=== PATIENT | female | born 1970 | race Caucasian/White ===

== ENCOUNTER 2017-07-14 03:29 | Outpatient (CLI) | payer OTHER | END 2017-07-14 03:30 | disposition home or self-care (01) | LOC: BICRAD 03:29 | PROVIDERS: ATTEND Nurse Practitioner Family | DX: M54.2 Cervicalgia (principal) | CPT/HCPCS: 72052 ==

== ENCOUNTER 2017-07-15 12:41 | Outpatient (CLI) | payer OTHER ==
--- NOTE | 2017-07-15 15:52 | CT ---
CT OF THE BRAIN WITHOUT CONTRAST 07/15/17 COMPARISON: None. HISTORY: Fell and hit right side of head four days ago with headache. TECHNIQUE: Multiple contiguous axial images were obtained in a CT of the brain without contrast. FINDINGS: The brain has normal morphology and attenuation without focal lesions or confluent areas of infarctio n. There is no evidence of hydrocephalus, intracranial hemorrhage, or extra-axial fluid collection. The calvarium and overlying soft tissues are unremarkable. The visualized paranasal sinuses and masto id air cells are well aerated. IMPRESSION: No evidence of acute intracranial abnormality. POS: [facility]
== END 2017-07-15 12:42 | disposition home or self-care (01) ==
LOC: SCSCT 12:41
PROVIDERS: ATTEND Specialist
DX: R51 Headache (principal); W19.XXXA Unspecified fall, initial encounter
CPT/HCPCS: 70450

== ENCOUNTER 2017-09-10 11:00 | Outpatient (CLI) | payer OTHER ==
--- NOTE | 2017-09-10 12:30 | RAD ---
CERVICAL SPINE SERIES 3 VIEWS WITH FLEXION AND EXTENSION: HISTORY: Left-sided neck pain since July. FINDINGS: Vertebral bodies are normal in height. Disk spaces appear well preserved. No abnormal motion is noemí reciated in flexion or extension. IMPRESSION: Negative cervical spine series. POS: [facility]
== END 2017-09-10 11:01 | disposition home or self-care (01) ==
LOC: TBSIIMAG 11:00
PROVIDERS: ATTEND Neurological Surgery
DX: M54.2 Cervicalgia (principal)
CPT/HCPCS: 72040

== ENCOUNTER 2017-10-29 10:52 | Outpatient (CLI) | payer OTHER | END 2017-10-29 10:53 | disposition home or self-care (01) | LOC: BICRAD 10:52 | PROVIDERS: ATTEND Internal Medicine Rheumatology | DX: M17.0 Bilateral primary osteoarthritis of knee (principal); M54.89 Other dorsalgia; M47.896 Other spondylosis, lumbar region; M48.061 Spinal stenosis, lumbar region without neurogenic claudication | CPT/HCPCS: 72100 ==

== ENCOUNTER 2020-07-23 07:16 | Observation (INO) | payer OTHER ==
[2020-07-23] MEDS ORDERED: Aspirin 325 MG TAB ONE (07:38)
--- NOTE | 2020-07-23 07:48 | RAD ---
Chest one view HISTORY: Chest pain. FINDINGS: Cardiac silhouette and pulmonary vasculature are unremarkable. Mediastinum is midline. No l obar consolidation or evidence of pneumothorax. IMPRESSION : No abnormalities are demonstrated.
[2020-07-23 08:00] LABS: #Basophils 0.1 thou/uL (0.0-0.2); #Eosinphils 0.1 thou/uL (0.0-0.7); #Lymphocytes 2.2 thou/uL (1.20-3.40); #Monocytes 0.6 thou/uL (0.11-0.59); #Neutrophils 6.6 thou/uL (1.40-6.50); %Basophils 0.7 % (0.0-1.0); %Eosinophils 1.2 % (0.0-10.0); %Lymphocytes 23.1 % (21.0-51.0); %Monocytes 6.1 % (0.0-10.0); %Neutrophils 68.9 % (42.0-75.0); Hemoglobin 13.5 g/dL (12.0-16.0); Mean Corpuscular HGB CONC 33.9 g/dL (32.0-36.0); Mean Corpuscular Hemoglobin 31.5 pg (27.0-31.0); Mean Corpuscular Volume 92.9 fL (78.0-98.0); Mean Platelet Volume 7.5 fL (7.4-10.4); Platelet Count 239 thou/uL (130-400); RBC Distribution Width 11.8 % (11.5-14.5); White Blood Cell (WBC) Count 9.6 thou/uL (4.8-10.8)
[2020-07-23 08:07] LABS: BHCG - Serum Negative (NEGATIVE); Pregs Control Background? CLEAR/WHITE (CLR/WHITE); Pregs Control Bar Appear? YES (CONTROL BAR)
[2020-07-23 08:22] LABS: ALT (SGPT) 12 U/L (8-55); AST (SGOT) 13 U/L (5-34); Albumin 3.8 g/dL (3.5-5.0); Alkaline Phosphatase 106 U/L (40-110); Anion Gap 13 mmol/L (10-20); BUN (Urea Nitrogen) 12 mg/dL (7.0-18.7); Bilirubin, Total 0.3 mg/dL (0.2-1.2); Calc. Creatinine Clearance 0 mL/min (70-130); Calcium 8.6 mg/dL (7.8-10.44); Carbon Dioxide 30 mmol/L (22-29); Chloride 102 mmol/L (98-107); Globulin 2.8 g/dL (2.4-3.5); Glucose 100 mg/dL (70-105); Potassium 3.7 mmol/L (3.5-5.1); Protein, Total 6.6 g/dL (6.0-8.3); Sodium 141 mmol/L (136-145)
[2020-07-23] MEDS ORDERED: Iopamidol 370 76% 100 ML VIAL ONE (08:53)
[2020-07-23 10:21] LABS: SARS-CoV-2 NAA Rapid Test Not Detected (NotDetected)
[2020-07-23 12:09] LABS: Troponin I 0.011 ng/mL (< 0.028)
[2020-07-23] MEDS ORDERED: Communication Order-Pharmacy FS SCH (13:15)
[2020-07-23 13:30] VITALS: BMI 45.2
[2020-07-23] MEDS ORDERED: Midazolam HCl 2 mg/2 ml Vial ONE (13:54)
[2020-07-23] MEDS ORDERED: Fentanyl 100 MCG/2 ML VIAL ONE (13:54)
--- NOTE | 2020-07-23 14:06 | CON ---
DATE OF CONSULTATION: HISTORY OF PRESENT ILLNESS: The patient is a 49-year-old woman who presents with recurrent chest discomfort. The patient was seen initially for evaluation of left-sided chest discomfort. She reports that this chest discomfort occurs with and without exertion. The patient underwent a Cardiolite stress test, which was indeterminate. She subsequently underwent a PET scan, which revealed possible ischemia in the anteroapical wall. The patient this morning developed recurrent left-sided chest discomfort and presented to the emergency room for further evaluation. The patient denies having any present chest discomfort. PAST MEDICAL HISTORY: 1. Hypertension. 2. GE reflux. 3. Anxiety disorder. 4. Carpal tunnel syndrome. PAST SURGICAL HISTORY: Thyroid surgery and . MEDICATIONS: 1. Benazepril 40 daily. 2. Hydrochlorothiazide 25 daily. 3. Protonix 40 daily. 4. Toprol 200 XL daily. 5. Prozac 20 daily. 6. Crestor 20 daily. 7. Aspirin 81 daily. 8. Lasix 40 daily. 9. Potassium 10 daily. SOCIAL HISTORY: Smokes one pack per day. FAMILY HISTORY: Positive family history of heart disease. ALLERGIES: CODEINE AND NAPROSYN. REVIEW OF SYSTEMS: Ten-point system otherwise unremarkable. She has no history of easy bruising and bleeding. PHYSICAL EXAMINATION: GENERAL: Obese woman, in no acute distress. VITAL SIGNS: Blood pressure 140/80. NECK: No jugular venous distention. LUNGS: Clear to auscultation. HEART: Regular rate and rhythm. Normal S1, S2. No murmurs. ABDOMEN: Distended. EXTREMITIES: Show no edema. VASCULAR: Radial pulses are 2+. LABORATORY DATA: Sodium 141, potassium 3.7, chloride 102, bicarbonate 30, BUN 12, creatinine 0.6, and glucose 100. Troponin 0.015. White blood cell count 9.6, hemoglobin 13.5, hematocrit 39.9, platelets are 239. EKG sinus bradycardia, otherwise normal ECG. IMPRESSION: 1. Chest pain. 2. Abnormal stress test. 3. Hypertension. 4. Anxiety disorder. 5. Tobacco abuse. This patient presents with recurrent chest pain. She had evidence of possible ischemia. I explained the option of medical therapy versus invasive evaluation. The patient strongly prefers to undergo cardiac catheterization. The risks involved the procedure including LA, bleeding, stroke, cardiac arrhythmia, cardiac , allergic reactions, and developing renal failure have been explained to the patient and she wishes to proceed. Job ID: [id number] MTDD
[2020-07-23] MEDS ORDERED: Sodium Chloride 0.9% 200 ML IV PRN (14:32)
[2020-07-23] MEDS ORDERED: Nitroglycerin 0.4 MG TAB (25 Tab Bottle) SL PRN (14:32)
[2020-07-23 17:25] LABS: Troponin I Less than 0.010 ng/mL (< 0.028)
[2020-07-23] MEDS ORDERED: Zolpidem Tartrate 5 MG TAB PO PRN (19:58)
[2020-07-23] MEDS ORDERED: Lisinopril 10 MG TAB PO PRN (20:00)
[2020-07-23] MEDS ORDERED: Acetaminophen 325 MG TAB PO PRN (20:01)
[2020-07-24] MEDS ORDERED: Mometasone 100 MCG/Formoterol 5 MCG 120 PUFF INHALER INH SCH (06:30)
[2020-07-24 11:34] VITALS: BP 105/51; TEMP 98.5
--- NOTE | 2020-07-24 13:26 | CT ---
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 Evaluate specific type of anomaly. TECHNIQUE: IV injection of 75 mL iodinated contrast. Scan acquisition through heart. 3-D MIP reconstructions. Limited [id number] around heart. FINDINGS: The anomalous circumflex artery arises from a common origin with the right coronary artery from the r ight coronary cusp, then travels posteriorly, then around the posterior aspect of the aortic root, then eventually descends along the left atrioventricular groove, where the LCx has multifocal tiny ca lcifications. Paralleling this in the left atrial ventricular groove, there is a tortuous, diseased, calcified bran ches of ramus intermedius. The IV contrast concentration is suboptimal, and therefore this study is not optimal for evaluation o f coronary artery stenosis. Nevertheless, there is no calcified plaque and no high-grade stenosis of the proximal and mid portion s of the RCA, left main, and proximal LAD. PDA probably arises from RCA. No thoracic aortic aneurysm or dissection. No pericardial effusion. No thrombus in left atrial appendage. Visualized central lung yu are grossly clear. Trachea and bilateral mainstem bronchi are patent and clear. 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 2) significantly diseased ramus intermedius artery.
[2020-07-24] MEDS ORDERED: Iopamidol 370 76% 100 ML VIAL ONE (13:27)
--- NOTE | 2020-07-25 01:18 | SS ---
DATE OF ADMISSION: 07/23/2020 DATE OF DISCHARGE: 07/24/2020 CHIEF COMPLAINT ON ADMISSION: Chest pain. HISTORY OF PRESENT ILLNESS: The patient is a 49-year-old female, who had multiple episodes of chest pain, but had finally presented to Dr. Jack in a fashion with left-sided discomfort. He felt it would be necessary to go ahead and rule out coronary artery disease with a left heart cath with discomfort happens with and without exertion. She had undergone a Cardiolite stress test, which was indeterminate. She had even undergone a PET scan, which revealed possible ischemia in the anterior apical wall. For this reason, he felt the best final option would be to go ahead and cath and see if there is any coronary artery disease. She is put in a telemetry bed. Dr. Chavez was contacted to do the history and physical and oversee her care. PAST MEDICAL HISTORY: Significant for hypertension, GERD, anxiety disorder, carpal tunnel syndrome, goiter, osteoarthritis of the hands, and hypertension. PAST SURGICAL HISTORY: Includes thyroid surgery, section. She has also had tubal ligation, hysterectomy done twice to achieve full removal, partial thyroidectomy, ovarian cyst removal. PSYCHIATRIC HISTORY: Includes anxiety, but she was never hospitalized for it. SOCIAL HISTORY: She denies alcohol or drug use. She does use tobacco and smokes daily a 13-pqth-xehn history. ALLERGIES: TO CODEINE. MEDICATIONS ON ADMISSION: Include: 1. Potassium 10 mEq daily. 2. Celecoxib 400 mg daily. 3. Cyclobenzaprine 10 mg q.8 hours p.r.n. 4. Hydrochlorothiazide 25 mg q.a.m. 5. 81 mg aspirin daily. 6. Prozac 20 mg daily. 7. Benazepril 40 mg daily. 8. Lasix 40 mg q.a.m. 9. Rosuvastatin 20 mg daily. 10. Metoprolol succinate 200 mg daily. 11. Protonix 40 mg daily. 12. P.r.n. nitroglycerin sublingual 0.4 mg b.i.d. REVIEW OF SYSTEMS: GENERAL: Positive for general malaise, but otherwise no fever, chills, or vomiting diarrhea. HEENT: No drainage in eyes, ears, nose, or throat. CHEST: Denies cough or shortness of breath. CARDIOVASCULAR: Chest pain is one of the reasons for admission, but denies palpitations. GI: Denies nausea, vomiting, or diarrhea. : Denies dysuria or blood in urine or stool. MUSCULOSKELETAL: Denies aches or pains in the major muscle groups. She does have joint pain, especially in her hands. SKIN: No new rashes or lesions. NEUROLOGIC: She denies headache, blurred vision, or trouble with mentation. PHYSICAL EXAMINATION: VITAL SIGNS: At the time of admission, blood pressure is 134/53, pulse 60, respirations 16, temperature 98.4 with a pain scale of 6/10, O2 saturation 99% on room air. General: Well-developed, obese, female. Alert, oriented, cooperative. HEENT: Normocephalic, atraumatic. Pupils are equal, round, and reactive to light. Sclera nonicteric. TMs, nares, and pharynx are clear. NECK: Supple. Trachea midline. No mass. No bruit. CHEST: Clear to auscultation. BREASTS: Deferred. HEART: Regular rate and rhythm without murmur. ABDOMEN: Soft without organomegaly. Nontender. : Deferred. EXTREMITIES: Without clubbing, cyanosis, or edema. Normal range of motion present in upper and lower extremities with symmetrical muscular tone in upper and lower extremities. SKIN: No acute rashes or lesions. NEUROLOGIC: Cranial nerves are intact. Sensory exam is grossly intact. Gait and cerebral function are untested. Sensory exam is grossly intact. LAB WORK: Thus far showed WBC 6.9, hemoglobin 13.5, hematocrit 39.9 with platelets at 239. She is COVID negative. Sodium 141, potassium 3.7, chloride 102, CO2 of 30, BUN 12, creatinine 0.6 with a GFR greater than 90, glucose 100. Liver functions unremarkable. Troponin I is negative x3. BNP at 45. test is negative. ASSESSMENT: 1. Chest pain, etiology unclear. 2. Hypertension. 3. Anxiety disorder. PLAN: Plan will be to observe her on telemetry. Dr. Jack already had been consulted. He plans for left heart catheterization. This was done on the day of initial observation that returned no coronary artery disease. She was watched overnight for any further complications to the cath site. There were none. Finally, on the day of discharge, she had a CT of her chest to look for the correct path of her circumflex artery. It turns out to be anomalous, but not too atypical and no areas of ischemia were noted. DIAGNOSES AT THE TIME OF DISCHARGE: 1. Chest pain, etiology undetermined. 2. Hypertension. 3. Anxiety disorder. PLAN: She will be discharged on her usual medication, but Imdur 30 mg daily has been added when she follows up with Dr. Chavez in 1 week to evaluate further for GERD and gallbladder disease. In the meantime, she will stay on her current medications. The time required to review the chart, examine the patient, adolescent counselor the patient, and plan for discharge including reconciliation of all her medications came to 30 minutes [id number] and other 20 minutes in dictation and paperwork. The patient is discharged in stable condition and will follow up with Dr. Chavez as planned in 1 week. Job ID: [id number]
--- NOTE | 2020-08-04 16:33 | EKG ---
Test Reason : Blood Pressure : / mmHG Vent. Rate : 056 BPM Atrial Rate : 056 BPM P-R Int : 188 ms QRS Dur : 092 ms QT Int : 444 ms P-R-T Axes : 049 -04 015 degrees QTc Int : 428 ms Sinus bradycardia Otherwise normal ECG Confirmed by FILOMENA Greenwood, QUENTIN ([id number]), editor sound LIDIA PAGAN ([id number]) on 08/04/2020 4:32:35 PM Referred By: Confirmed By:QUENTIN BUTT M.D.
== END 2020-07-24 13:30 | disposition home or self-care (01) ==
LOC: ERS 07:16 → 2NO 09:08 → INTOOBSV 09:08
PROVIDERS: ADMIT Specialist; ATTEND Specialist
PROC: 4A023N7 Measurement of Cardiac Sampling and Pressure, Left Heart, Percutaneous Approach (ICD-10-PCS; principal; 2020-07-23)
PROC: B2111ZZ Fluoroscopy of Multiple Coronary Arteries using Low Osmolar Contrast (ICD-10-PCS; 2020-07-23)
DX: R07.89 Other chest pain (principal); R94.39 Abnormal result of other cardiovascular function study; I10 Essential (primary) hypertension; F41.9 Anxiety disorder, unspecified; K21.9 Gastro-esophageal reflux disease without esophagitis; F17.210 Nicotine dependence, cigarettes, uncomplicated; E89.0 Postprocedural hypothyroidism; M19.042 Primary osteoarthritis, left hand; M19.041 Primary osteoarthritis, right hand; E66.9 Obesity, unspecified; Z68.42 Body mass index [BMI] 45.0-49.9, adult; Z79.82 Long term (current) use of aspirin; Z79.899 Other long term (current) drug therapy; Z88.5 Allergy status to narcotic agent; Z88.6 Allergy status to analgesic agent; Z20.828 Contact with and (suspected) exposure to other viral communicable diseases
CPT/HCPCS: 36415; 71045; 71275; 80053; 83880; 84484; 84703; 85025; 93005; 93458; 99152; 99153; G0378; J1644; J2250; J3010; Q9967; U0002

== ENCOUNTER 2020-11-09 09:26 | Outpatient (CLI) | payer OTHER | END 2020-11-09 09:27 | disposition home or self-care (01) | LOC: BICMAMMO 09:26 | PROVIDERS: ATTEND Specialist | DX: Z12.31 Encounter for screening mammogram for malignant neoplasm of breast (principal); Z91.89 Other specified personal risk factors, not elsewhere classified | CPT/HCPCS: 77063; 77067 ==

== ENCOUNTER 2020-12-07 22:54 | Emergency (ER) | payer OTHER ==
[2020-12-07] MEDS ORDERED: Metoclopramide HCl 10 MG/2 ML VIAL ONE (23:20)
[2020-12-07] MEDS ORDERED: diphenhydrAMINE 50 MG/ML VIAL ONE (23:20)
[2020-12-07] MEDS ORDERED: Ketorolac Tromethamine 30 MG/ML VIAL ONE (23:20)
== END 2020-12-08 00:53 | disposition home or self-care (01) ==
LOC: ERS 22:54
DX: R51.9 Headache, unspecified (principal); R11.0 Nausea; I10 Essential (primary) hypertension; F17.210 Nicotine dependence, cigarettes, uncomplicated
CPT/HCPCS: 96365; 96375; J1200; J1885; J2765

== ENCOUNTER 2020-12-12 11:06 | Outpatient (CLI) | payer OTHER | END 2020-12-12 11:07 | disposition home or self-care (01) | LOC: BICRAD 11:06 | PROVIDERS: ATTEND Specialist | DX: S19.9XXA Unspecified injury of neck, initial encounter (principal); G43.909 Migraine, unspecified, not intractable, without status migrainosus; M54.2 Cervicalgia; M43.12 Spondylolisthesis, cervical region | CPT/HCPCS: 72040 ==

== ENCOUNTER 2021-08-08 10:50 | Outpatient (CLI) | payer MEDICAID, OTHER | END 2021-08-08 10:51 | disposition home or self-care (01) | LOC: BICMAMMO 10:50 | PROVIDERS: ATTEND Nurse Practitioner Family | DX: Z12.31 Encounter for screening mammogram for malignant neoplasm of breast (principal); Z91.89 Other specified personal risk factors, not elsewhere classified | CPT/HCPCS: 77067 ==

== ENCOUNTER 2022-01-11 18:30 | Emergency (ER) | payer OTHER | END 2022-01-11 19:55 | disposition home or self-care (01) | LOC: ERS 18:30 | DX: S93.402A Sprain of unspecified ligament of left ankle, initial encounter (principal); M25.562 Pain in left knee; W19.XXXA Unspecified fall, initial encounter; X50.9XXA Other and unspecified overexertion or strenuous movements or postures, initial encounter; I10 Essential (primary) hypertension; M19.90 Unspecified osteoarthritis, unspecified site; F17.210 Nicotine dependence, cigarettes, uncomplicated ==

== ENCOUNTER 2022-01-20 11:28 | Outpatient (CLI) | payer OTHER | END 2022-01-20 11:29 | disposition home or self-care (01) | LOC: TBSIIMAG 11:28 | DX: M47.22 Other spondylosis with radiculopathy, cervical region (principal); M43.12 Spondylolisthesis, cervical region | CPT/HCPCS: 72050 ==

== ENCOUNTER 2022-01-20 12:09 | Outpatient (CLI) | payer OTHER | END 2022-01-20 12:10 | disposition home or self-care (01) | LOC: BICULT 12:09 | PROVIDERS: ATTEND Nurse Practitioner Family | DX: E89.0 Postprocedural hypothyroidism (principal); E04.1 Nontoxic single thyroid nodule; M47.22 Other spondylosis with radiculopathy, cervical region; M43.12 Spondylolisthesis, cervical region | CPT/HCPCS: 72050; 76536 ==

== ENCOUNTER 2022-05-01 09:13 | Outpatient (CLI) | payer OTHER | END 2022-05-01 09:14 | disposition home or self-care (01) | LOC: BICMAMMO 09:13 | PROVIDERS: ATTEND Nurse Practitioner Family | DX: N63.42 Unspecified lump in left breast, subareolar (principal) | CPT/HCPCS: G0279 ==

== ENCOUNTER → 2022-05-05 | Day surgery (SDC) | payer OTHER | END | disposition home or self-care (01) | LOC: BICULT 12:14 | PROVIDERS: ATTEND Nurse Practitioner Family | PROC: 0H9U3ZX Drainage of Left Breast, Percutaneous Approach, Diagnostic (ICD-10-PCS; principal; 2022-05-05) | DX: N61.1 Abscess of the breast and nipple (principal); N64.53 Retraction of nipple; Z88.5 Allergy status to narcotic agent; Z88.8 Allergy status to other drugs, medicaments and biological substances | CPT/HCPCS: 19083; 88305 ==

== ENCOUNTER 2022-05-09 17:36 | Emergency (ER) | payer OTHER | END 2022-05-09 18:41 | disposition home or self-care (01) | LOC: ERS 17:36 | DX: L02.213 Cutaneous abscess of chest wall (principal); I10 Essential (primary) hypertension; E78.5 Hyperlipidemia, unspecified; F17.210 Nicotine dependence, cigarettes, uncomplicated; Z79.899 Other long term (current) drug therapy ==

== ENCOUNTER 2022-06-17 11:55 | Outpatient (CLI) | payer OTHER ==
[2022-06-17 12:39] LABS: #Basophils 0.1 10x3/uL (0.0-0.2); #Eosinphils 0.1 10x3/uL (0.0-0.5); #Monocytes 0.6 10x3/uL (0.0-1.1); #Neutrophils 5.7 10x3/uL (1.5-8.4); %Basophils 0.5 % (0.0-2.0); %Eosinophils 1.1 % (0.0-6.0); %Monocytes 6.3 % (0.0-10.0); %Neutrophils 59.7 % (40.0-75.0); Mean Corpuscular HGB CONC 33.7 g/dL (32.0-36.0); Mean Corpuscular Hemoglobin 30.6 pg (27.0-33.0); Mean Platelet Volume 9.7 fl (7.4-10.4); Platelet Count 272 10x3/uL (150-450); RBC Distribution Width 13.9 % (11.5-14.5); Red Blood Cell (RBC) Count 4.57 10x6/uL (3.90-5.03); White Blood Cell (WBC) Count 9.6 10x3/uL (3.5-10.5)
[2022-06-17 12:43] LABS: Anion Gap 12 mmol/L (10-20); BUN (Urea Nitrogen) 8 mg/dL (7.0-18.7); Calc. Creatinine Clearance 0 mL/min (70-130); Calcium 9.2 mg/dL (7.8-10.44); Carbon Dioxide 27 mmol/L (22-29); Chloride 108 mmol/L (98-107); Estimated GFR 108; Glucose 94 mg/dL (70-105); Potassium 4.7 mmol/L (3.5-5.1); Sodium 142 mmol/L (136-145)
== END 2022-06-17 11:56 | disposition home or self-care (01) ==
LOC: LABBT 11:55
PROVIDERS: ATTEND Specialist
DX: Z01.818 Encounter for other preprocedural examination (principal); N60.02 Solitary cyst of left breast
CPT/HCPCS: 80048; 85025; 93005; 93010

== ENCOUNTER 2022-06-19 05:51 | Day surgery (SDC) | payer OTHER ==
[2022-06-18 10:00] VITALS: BMI 46.3
[2022-06-19] MEDS ORDERED: Ketorolac Tromethamine 30 MG/ML VIAL ONE (06:16)
[2022-06-19] MEDS ORDERED: Acetaminophen 500 MG TAB ONE (06:16)
[2022-06-19] MEDS ORDERED: Bupivacaine/Epinephrine 0.25% 30 ML VIAL ONE (09:30)
[2022-06-19] MEDS ORDERED: Lidocaine 2% PF 5 ML VIAL ONE (09:30)
[2022-06-19] MEDS ORDERED: Midazolam HCl 2 mg/2 ml Vial ONE (09:34)
[2022-06-19] MEDS ORDERED: fentaNYL PF 100 MCG/2 ML SYRINGE ONE (09:34)
[2022-06-19] MEDS ORDERED: CEFAZOLIN 2 GM VIAL ONE (09:35)
[2022-06-19] MEDS ORDERED: Sodium Chloride 0.9% 100 ML ONE (09:35)
[2022-06-19] MEDS ORDERED: Lidocaine 2% 6 ML SYR ONE (09:35)
[2022-06-19] MEDS ORDERED: Famotidine/PF 20 mg/2ml Vial ONE (09:44)
[2022-06-19] MEDS ORDERED: Succinylcholine Chloride 200 MG/10 ML VIAL ONE (09:53)
[2022-06-19] MEDS ORDERED: Ondansetron PF 4 MG/2 ML Vial ONE (09:53)
[2022-06-19] MEDS ORDERED: ePHEDrine 50 MG/ML VIAL ONE (09:53)
[2022-06-19] MEDS ORDERED: Dexamethasone 20 MG/5 ML VIAL ONE (09:53)
[2022-06-19] MEDS ORDERED: Rocuronium Bromide 10 MG/ML (10ML VIAL) ONE (09:53)
[2022-06-19] MEDS ORDERED: SUGAMMADEX SODIUM 200 MG/2 ML VIAL ONE (10:34)
== END 2022-06-19 12:05 | disposition home or self-care (01) ==
LOC: SDC 05:51
PROVIDERS: ATTEND Specialist
PROC: 0HBU0ZZ Excision of Left Breast, Open Approach (ICD-10-PCS; principal; 2022-06-19)
DX: N60.02 Solitary cyst of left breast (principal); N61.1 Abscess of the breast and nipple; E89.0 Postprocedural hypothyroidism; M19.90 Unspecified osteoarthritis, unspecified site; E78.5 Hyperlipidemia, unspecified; I11.9 Hypertensive heart disease without heart failure; G25.81 Restless legs syndrome; F17.200 Nicotine dependence, unspecified, uncomplicated; E66.9 Obesity, unspecified; Z68.42 Body mass index [BMI] 45.0-49.9, adult; Z79.82 Long term (current) use of aspirin; Z79.899 Other long term (current) drug therapy; Z88.5 Allergy status to narcotic agent; Z88.6 Allergy status to analgesic agent; Z88.8 Allergy status to other drugs, medicaments and biological substances
CPT/HCPCS: 87070; 87186; 87205; 88304; C1713; J0330; J1100; J1885; J2001; J2250; J2405; J3490; S0028

== ENCOUNTER 2022-07-01 12:27 | Outpatient (CLI) | payer OTHER | END 2022-07-01 12:28 | disposition home or self-care (01) | LOC: RAD 12:27 | PROVIDERS: ATTEND Internal Medicine Critical Care Medicine | DX: R06.00 Dyspnea, unspecified (principal) | CPT/HCPCS: 71046 ==

== ENCOUNTER 2022-07-17 08:58 | Outpatient (CLI) | payer OTHER | END 2022-07-17 08:59 | disposition home or self-care (01) | LOC: TBSIIMAG 08:58 | PROVIDERS: ATTEND Neurological Surgery | DX: M47.22 Other spondylosis with radiculopathy, cervical region (principal) | CPT/HCPCS: 72050 ==

== ENCOUNTER 2022-08-06 12:51 | Outpatient (CLI) | payer OTHER ==
[~2022-08-06 12:51] MED LIST: Iopamidol 370 76% 100 ML VIAL ONE
== END 2022-08-06 12:52 | disposition home or self-care (01) ==
LOC: BICCT 12:51
PROVIDERS: ATTEND Nurse Practitioner Family
DX: R05.3 Chronic cough (principal); F17.200 Nicotine dependence, unspecified, uncomplicated; K80.20 Calculus of gallbladder without cholecystitis without obstruction; J98.4 Other disorders of lung; R91.8 Other nonspecific abnormal finding of lung field
CPT/HCPCS: 71260; 82565; Q9967